=== PATIENT | female | born 1990 | race Caucasian/White ===

== ENCOUNTER 2016-08-29 18:20 | Emergency (ER) | payer OTHER ==
[2016-08-29] MEDS ORDERED: IBUPROFEN 800 MG TABLET PO STA (19:41)
[2016-08-29] MEDS ORDERED: IBUPROFEN 800 MG TABLET PO ONE (19:46)
== END 2016-08-29 20:17 | disposition home or self-care (01) ==
DX: R09.1 Pleurisy (principal)
CPT/HCPCS: 36415; 71020; 80053; 81003; 81025; 83690; 85025; 85379; 93005; 93010; 99283; 99284; A9270